=== PATIENT | male | born 1975 | race American Indian/Alaskan Native ===

== ENCOUNTER 2018-01-21 08:50 | Day surgery (SDC) | payer OTHER ==
--- NOTE | 2018-01-21 09:32 | Anesthesia Consultation ---
Anesthesia Consult and Med Hx Date of service: 01/21/18 - Airway Anesthetic Teeth Evaluation: Good ROM Head & Neck: Adequate Mental/Hyoid Distance: Adequate Mallampati Class: Class III Intubation Access Assessment: Possibly Difficult - Pulmonary Exam CTA: Yes - Cardiac Exam Cardiac Exam: RRR - Pre-Operative Health Status ASA Pre-Surgery Classification: ASA1 Proposed Anesthetic Plan: General - Pre-Anesthesia Comment Pre-Anesthesia Comments: kidney stones
--- NOTE | 2018-01-21 09:33 | Anesthesia Day of Surgery ---
Anesthesia Day of Surgery - Day of Surgery Patient Examined: Yes Patient H&P Reviewed: Yes Patient is NPO: Yes
[2018-01-21] MEDS ORDERED: NACL 0.9% 1000 ML 1,000 ML IV SCH (10:00)
[2018-01-21] MEDS ORDERED: PEPCID IV NR (10:15)
[2018-01-21] MEDS ORDERED: ANCEF/STERILE WATER 2 GM/20 ML IV NR (10:30)
[2018-01-21] MEDS ORDERED: VERSED IV NR (11:00)
--- NOTE | 2018-01-21 11:01 | Short Stay Summary ---
Short Stay Documentation Date of service: 01/21/18 - History H&P: obtained from office - Allergies and Medications Current Medications: Allergies No Known Allergies Allergy (Verified 01/20/18 12:02) Home Medications Medication Instructions Recorded Confirmed Last Taken Type HYDROcodone/ACETAMINOPHEN 1 each PO Q6H 01/20/18 01/20/18 Unknown History [Hydrocodone-Acetamin 10-325 mg] Nitrofurantoin [facility]/M-Cryst 100 mg PO Q12H 01/20/18 01/20/18 Unknown History [Macrobid CAP] Oxycodone HCl/Acetaminophen 0.5 - 1 each PO Q6HR PRN #30 tablet 01/21/18 Unknown Rx [Percocet 10/325 mg] Sulfamethoxazole/Trimethoprim 1 each PO BID #10 tablet 01/21/18 Unknown Rx [Bactrim DS TAB] Active Medications Cefazolin Sodium (Ancef/Sterile Water 2 Gm/20 Ml) 2 gm IV PREOP NR Stop: 01/21/18 13:00 Famotidine (Pepcid) 20 mg IV PREOP NR Stop: 01/21/18 23:59 Sodium Chloride (Nacl 0.9% 1000 Ml) 1,000 mls @ 75 mls/hr IV DIRECT BYRON Stop: 01/21/18 23:59 Midazolam HCl (Versed) 2 mg IV PREOP NR Stop: 01/21/18 23:59 - Brief post op/procedure progress note Date of procedure: 01/21/18 Pre-op diagnosis: right uret stone 6mm Post-op diagnosis: same Procedure: right urs sbe, dilation stent 6x26, valeria rpg Anesthesia: GETA Findings: no dev Surgeon: MASSIMO JIMÉNEZ Estimated blood loss: none Condition: stable - Hospital course Hospital course: or pacu home - Disposition Condition at discharge: Good Disposition: DC-01 TO HOME OR SELFCARE Short Stay Discharge Plan Follow up with: MASSIMO JIMÉNEZ MD [Staff Physician] - 10 Days Prescriptions: Oxycodone HCl/Acetaminophen [Percocet 10/325 mg] 0.5 - 1 each PO Q6HR PRN #30 tablet PRN Reason: Pain Sulfamethoxazole/Trimethoprim [Bactrim DS TAB] 1 each PO BID #10 tablet
[2018-01-21] MEDS ORDERED: XYLOCAINE MPF 2% ONE (11:35)
[2018-01-21] MEDS ORDERED: DILAUDID ONE (11:36)
[2018-01-21] MEDS ORDERED: DIPRIVAN 10 MG/ML IV ONE (11:36)
[2018-01-21] MEDS ORDERED: DECADRON ONE (12:12)
[2018-01-21] MEDS ORDERED: ZOFRAN ONE (12:12)
[2018-01-21] MEDS ORDERED: SUBLIMAZE ONE (12:23)
[2018-01-21] MEDS ORDERED: NACL 0.9% 1000 ML 1,000 ML ONE (12:49)
[2018-01-21] MEDS ORDERED: WATER FOR IRRIG STERILE IR ONE ×2 (13:15→13:16)
[2018-01-21] MEDS ORDERED: OMNIPAQUE 300 MG/50 ML (CATH LAB) IV ONE (13:16)
[2018-01-21 14:09] VITALS: BP 133/88
--- NOTE | 2018-01-22 07:06 | XRay Report ---
Single view abdomen: History: Kidney stones. Findings: No definite radiopaque calculus or abnormal calcification noted. No bowel distention. Densities and pelvis appear to be phleboliths. Impression: Densities in pelvis appear to be phleboliths.
--- NOTE | 2018-01-25 08:42 | Fluoroscopy Report ---
FLUOROSCOPY RETROGRADE UROGRAPHY: HISTORY: Right ureteral stone. FINDINGS: Fluoroscopy was provided by radiology during retrograde urography by the urologist. 5 fluoroscopic images were captured. The images demonstrate placement of a right ureteral stent which adequately drains the right collecting system on the final images. Right ureteroscopy and right ureteral stone removal with graspers was noted in the procedural report. No images of the left retrograde pyelogram are submitted. IMPRESSION: Right ureteral stone removal. Right ureteral stent placement.
== END 2018-01-21 14:36 | disposition home or self-care (01) ==
LOC: OR 08:50
PROVIDERS: ATTEND Urology
DX: N20.2 Calculus of kidney with calculus of ureter (principal); I10 Essential (primary) hypertension; Z79.899 Other long term (current) drug therapy; Z72.89 Other problems related to lifestyle; Z98.890 Other specified postprocedural states
CPT/HCPCS: 36415; 52330; 52332; 52344; 74018; 74420; 82365; A4217; C1726; C1758; C1769; C2617; J0690; J1100; J1170; J2250; J2405; J2704; J3010; J7030; Q9967